=== PATIENT | female | born 1935 | race Caucasian/White ===

== ENCOUNTER 2018-04-05 07:02 | Day surgery (SDC) | payer MEDICARE, OTHER ==
[~2018-04-05 07:02] MED LIST: Lactated Ringers 1,000 ML IV SCH; Sodium Chloride 0.9% 10 ML Syringe FLUSH PRN
[2018-04-05] MEDS ORDERED: Propofol 200 MG/20 ML SDV ONE (07:50)
[2018-04-05] MEDS ORDERED: Ondansetron 4 MG/2 ML SDV ONE (08:24)
[2018-04-05 09:30] VITALS: BP 134/54
--- NOTE | 2018-04-05 16:05 | OR ---
PREOPERATIVE DIAGNOSIS: Chronic gastroesophageal reflux disease. POSTOPERATIVE DIAGNOSIS: Active grade 2 chronic gastroesophageal reflux disease, moderate antritis with superficial ulcerations. PROCEDURE PROPOSED: Upper gastrointestinal panendoscopy. PROCEDURE DONE: Upper gastrointestinal panendoscopy with antral biopsies. INDICATIONS: An 82-year-old female bothered with dyspepsia. She is on and off medicine. Does not seem to really take anything on a regular basis. She is presently taking some intermittent Zantac and she comes in now for recommended gastroscopy to determine the extent of her problem. TECHNIQUE: The patient was brought to the endoscopy suite, placed in left lateral decubitus position. She was sedated per [employer]PER with propofol. The flexible video gastroscope was then passed transorally and under visualization advanced well into the duodenum. The entire duodenum was visualized and was unremarkable. The antrum did reveal antritis with superficial ulcerations and a couple of antral biopsies were taken mainly to rule out H. pylori, which she has had a positive test for in the past. The body of the stomach otherwise looked rather unremarkable. She did have a small hiatal hernia of about 2-3 cm and she did have significant grade 2 GERD with linear ulcerations. There were no signs of any Schatzki's ring or stenosis. No signs of any Huang's esophagus and the remainder of the esophagus is normal as the scope was then withdrawn. She tolerated the procedure well. FINAL IMPRESSION: 1. Grade 2 gastroesophageal reflux disease with linear ulcerations. 2. Antritis with superficial ulcerations. PLAN: She will be placed on Protonix 40 mg daily for 3 months. She needs to avoid caffeine, alcohol, ibuprofen, Aleve, aspirin, and nicotine, and I would like to follow up with her in 1 month to determine her symptomatology and if there is any need for change in her medication. SCM: 04/05/2018 09:00:55 MODL: 04/05/2018 15:57:58 /[id number]
== END 2018-04-05 10:15 | disposition home or self-care (01) ==
LOC: VM.SDS 07:02
PROVIDERS: ATTEND Surgery
DX: K21.9 Gastro-esophageal reflux disease without esophagitis (principal); K29.60 Other gastritis without bleeding; K25.9 Gastric ulcer, unspecified as acute or chronic, without hemorrhage or perforation; K64.8 Other hemorrhoids; E03.9 Hypothyroidism, unspecified; E78.5 Hyperlipidemia, unspecified; I44.7 Left bundle-branch block, unspecified; J45.909 Unspecified asthma, uncomplicated; M19.90 Unspecified osteoarthritis, unspecified site; Z79.51 Long term (current) use of inhaled steroids; Z79.899 Other long term (current) drug therapy; Z88.2 Allergy status to sulfonamides; Z88.5 Allergy status to narcotic agent; Z80.0 Family history of malignant neoplasm of digestive organs
CPT/HCPCS: 00731; J2405; J2704; J7120

== ENCOUNTER 2018-08-28 13:45 | Emergency (ER) | payer MEDICARE, OTHER ==
[2018-08-28 14:00] VITALS: BP 133/56
[2018-08-28 14:50] LABS: ANION GAP 10.1 mmol/L (10-20)
[2018-08-28] MEDS ORDERED: Take Home: Amoxicillin/Clavulanate K 875-125 MG Tab, 2 Tab Pack PO ONE (15:32)
[2018-08-28] MEDS ORDERED: predniSONE 20 MG Tab PO ONE (15:33)
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
== END 2018-08-28 15:40 | disposition home or self-care (01) ==
LOC: VM.ED 13:45
DX: J32.9 Chronic sinusitis, unspecified (principal); E78.00 Pure hypercholesterolemia, unspecified; E03.9 Hypothyroidism, unspecified; K21.9 Gastro-esophageal reflux disease without esophagitis; Z79.82 Long term (current) use of aspirin; Z79.899 Other long term (current) drug therapy; Z88.1 Allergy status to other antibiotic agents; Z88.5 Allergy status to narcotic agent; Z88.6 Allergy status to analgesic agent
CPT/HCPCS: 36415; 70450; 71046; 80053; 85025; 99282; 99284; A9270

== ENCOUNTER 2021-04-07 10:31 | Day surgery (SDC) | payer MEDICARE, OTHER ==
[~2021-04-07 10:31] MED LIST changes: -Sodium Chloride 0.9% 10 ML Syringe FLUSH PRN
[2021-04-07] MEDS ORDERED: Lidocaine 4% 5 ML Amp ONE (11:40)
[2021-04-07] MEDS ORDERED: fentaNYL 100 MCG/2 ML SDV ONE (11:44)
[2021-04-07] MEDS ORDERED: Propofol 200 MG/20 ML SDV ONE (11:44)
[2021-04-07 12:28] VITALS: BP 147/67; PULSE 75
--- NOTE | 2021-04-08 07:46 | OR ---
PREOPERATIVE DIAGNOSIS: Gastroesophageal reflux disease. POSTOPERATIVE DIAGNOSIS: Gastroesophageal reflux disease. PROCEDURE PERFORMED: Esophagogastroduodenoscopy. PROCEDURE IN DETAIL: This was done in the endoscopy suite. Sedation given per Anesthesia. Scope was introduced into the pharynx, across the pharynx into the esophagus through the GE junction into the stomach across the pylorus into the duodenum. First and second portions of the duodenum were normal. Stomach itself was normal without any inflammation. She did have a moderate 5 cm hiatal hernia present. The scope was slowly withdrawn. The GE junction did appear well healed, although it was very friable and some bleeding was noted after the scope insertion. The remainder of exam was normal. FINAL DIAGNOSIS: 5 cm hiatal hernia. BKD: 04/07/2021 12:12:44 MODL: 04/07/2021 17:31:26 /[id number]
== END 2021-04-07 13:24 | disposition home or self-care (01) ==
LOC: VM.SDS 10:31
PROVIDERS: ATTEND Surgery
DX: K21.9 Gastro-esophageal reflux disease without esophagitis (principal); K44.9 Diaphragmatic hernia without obstruction or gangrene; E78.5 Hyperlipidemia, unspecified; E03.4 Atrophy of thyroid (acquired); J45.30 Mild persistent asthma, uncomplicated; Z88.5 Allergy status to narcotic agent; Z88.2 Allergy status to sulfonamides; Z80.0 Family history of malignant neoplasm of digestive organs; Z88.8 Allergy status to other drugs, medicaments and biological substances; Z79.899 Other long term (current) drug therapy; Z79.82 Long term (current) use of aspirin
CPT/HCPCS: 00731; J2704; J3010; J7120

== ENCOUNTER 2022-11-13 13:50 | Emergency (ER) | payer MEDICARE, OTHER ==
[2022-11-13 14:30] LABS: CHLORIDE,CL 104 mmol/L (98-107); SODIUM,NA 139 mmol/L (136-145)
[2022-11-13 14:31] LABS: ESTIMATED GFR 55 mL/min (>=60)
[2022-11-13 14:38] VITALS: BP 155/64; PULSE 83
[2022-11-13 14:50] LABS: CORONAVIRUS COVID-19 NAA NEGATIVE (NEGATIVE); RESPIRATORY SYNCYTIAL VIR NAA NEGATIVE (NEGATIVE)
== END 2022-11-13 15:20 | disposition home or self-care (01) ==
LOC: VM.ED 13:50
DX: N39.0 Urinary tract infection, site not specified (principal); E78.00 Pure hypercholesterolemia, unspecified; E03.9 Hypothyroidism, unspecified; Z88.5 Allergy status to narcotic agent; Z88.1 Allergy status to other antibiotic agents; Z79.899 Other long term (current) drug therapy; Z20.822 Contact with and (suspected) exposure to COVID-19
CPT/HCPCS: 0241U; 36415; 80053; 81001; 83735; 84484; 85025; 86140; 87086; 93005; 99285

== ENCOUNTER 2023-10-28 11:55 | Day surgery (SDC) | payer MEDICARE, OTHER ==
[2023-10-28] MEDS ORDERED: Propofol 200 MG/20 ML SDV ONE (13:02)
[2023-10-28 14:08] VITALS: BP 115/43; PULSE 66
== END 2023-10-28 15:00 | disposition home or self-care (01) ==
LOC: VM.SDS 11:55
PROVIDERS: ATTEND Family Medicine
DX: K29.50 Unspecified chronic gastritis without bleeding (principal); K21.00 Gastro-esophageal reflux disease with esophagitis, without bleeding; K22.70 Barrett's esophagus without dysplasia; K44.9 Diaphragmatic hernia without obstruction or gangrene; J45.40 Moderate persistent asthma, uncomplicated; E78.5 Hyperlipidemia, unspecified; G20.A1 Parkinson's disease without dyskinesia, without mention of fluctuations; E06.3 Autoimmune thyroiditis; Z79.890 Hormone replacement therapy; Z79.899 Other long term (current) drug therapy; Z88.5 Allergy status to narcotic agent; Z88.2 Allergy status to sulfonamides
CPT/HCPCS: 00731; 88305; 88312; J2704; J7120